=== PATIENT | female | born 1985 | race Two or more races ===

== ENCOUNTER 2025-01-20 23:19 | Emergency (ER) | payer OTHER ==
[~2025-01-20] VITALS: Ht 165.1 cm; Wt 91.0 kg
[2025-01-20] MEDS ORDERED: QUET150T2 PO (23:46)
[2025-01-20] MEDS ORDERED: TRAZ1TAB12 PO (23:46)
[2025-01-20] MEDS ORDERED: ALBU108A5 IN (23:46)
[2025-01-20] MEDS ORDERED: DIPH25CA66 PO (23:46)
--- NOTE | 2025-01-21 00:16 | ED.PDOC ---
History of Present Illness HPI Comments 39 y/o obese F is BIBA for c/o shortness of breath and mental health. Per EMS report, patient has a history of asthma, bipolar disorder, schizophrenia, and nicotine vape use. She called, initially, for difficulty breathing. On scene, patient than began endorsing on hearing voices in her head and inquiring for a psychiatric evaluation. She also reported on not taking any psychiatric medications and running out of her albuterol. Vitals were stable and within normal limits. She denies having any homicidal or suicidal ideations, chest pain, cough, congestion, fever, or further associated symptoms. Chief Complaint: Shortness of Breath Time Seen by MD: 23:30 Reviewed Notes: Nurses Notes, Toll Gate Keeper Notes, Medications, Allergies Allergies: Coded Allergies: NO KNOWN ALLERGIES (Unverified , 01/20/25) Home Meds Active Scripts Trazodone Hcl (Trazodone Hcl) 150 Mg Tab, 1 TAB PO QPM for 90 Days, #90 TAB 2 Refills Prov:WAGNER HARRIS MD 01/20/25 Diphenhydramine Hcl (Benadryl Allergy) 25 Mg Cap, 1 CAP PO QPM for 90 Days, #90 CAP 1 Refill Prov:WAGNER HARRIS MD 01/20/25 Quetiapine Fumerate (Seroquel Xr) 150 Mg Tab, 1 TAB PO QPM for 90 Days, #90 TAB 2 Refills Prov:WAGNER HARRIS MD 01/20/25 Albuterol Sulfate (Albuterol Sulfate Hfa) 108 Mcg/Act Aer, 108 MCG IN Q6HP PRN, #1 AER 3 Refills Prov:WAGNER HARRIS MD 01/20/25 Information Source: Patient, Emergency Med Personnel Mode of Arrival: EMS Severity: Moderate Timing: Hours Duration: Since onset Prehospital treatment: 12 Lead EKG, Coffee Break Attendant Past Medical History PAST MEDICAL HISTORY: Asthma, Schizophrenia Past Medical History (Other): bipolar disorder Surgical History: Denies all surgeries SAW MAN History: Denies all SAW MAN Hx Family History Family History: Unknown Social History Smoker: Non-Smoker Alcohol: Denies ETOH Use Drugs: Denies Drug Use Lives In: Home All Other Systems: Reviewed and Negative (Comprehensive systems review obtained and negative except for what is stated in the HPI.) Physical Exam General Appearance: No Apparent Distress, Normal HEENT: Normal ENT Inspection, Pharynx Normal, TMs Normal Neck: Full Range of Motion, Non-Tender, Normal, Normal Inspection Respiratory: Chest Non-Tender, Lungs Clear, No Accessory Muscle Use, No Respiratory Distress, Normal Breath Sounds Cardiovascular: No Edema, No JVD, No Murmur, No Gallop, Normal Peripheral Pulses, Regular Rate/Rhythm Breast Exam: Deferred Gastrointestinal: No Organomegaly, Non Tender, No Pulsatile Mass, Normal Bowel Sounds, Soft Genitalia: Deferred Pelvic: Deferred Rectal: Deferred Extremities: No calf tenderness, Normal capillary refill, Normal inspection, Normal range of motion, Non-tender, No pedal edema Musculoskeletal : Apperance: Normal Neurologic: Alert, remote ruby on rails developer II-XII nml as Tested, No Motor Deficits, Normal Affect, Normal Mood, No Sensory Deficits Cerebellar Function: Normal Reflexes: Normal Skin: Dry, Normal Color, Warm Lymphatic: No Adenopathy Was a procedure done? Was a procedure done?: No EKG EKG : Pulse Rate (adult): 71 Skipwith: Normal Cardiac Rhythm: NSR Block: None Hypertrophy: None ST: Normal Differential Dx Considerations may include: asthma exacerbation, noncompliance, schizoaffective disorder, among others X-Ray, Labs, Meds, VS Vital Signs Date Time Temp Pulse Resp B/P (MAP) Pulse Ox O2 Delivery O2 Flow Rate FiO2 01/21/25 00:40 98.8 73 12 104/61 (75) 97 98.8 01/21/25 00:40 Room Air* 0 21 01/21/25 00:16 71 01/20/25 23:29 98.4 73 16 106/64 (78) 98 98.4 01/20/25 23:26 71 Time of 1ST Reevaluation: 00:00 Reevaluation 1ST: Unchanged Patient Education/Counseling: Diagnosis, Treatment, Need For Follow Up Family Education/Counseling: No Family Present Departure 1 Departure Time of Disposition: 00:40 Impression: Primary Impression: Schizophrenia Additional Impression: Asthma Disposition: HOME / SELF CARE / HOMELESS Condition: Stable Additional Instructions: Follow up with your Primary Physician Return to the Emergency Department for any worsening symptoms or concerns e-Prescriptions Trazodone Hcl (Trazodone Hcl) 150 Mg Tab 1 TAB PO QPM for 90 Days, #90 TAB 2 Refills Prov: WAGNER HARRIS MD 01/20/25 Diphenhydramine Hcl (Benadryl Allergy) 25 Mg Cap 1 CAP PO QPM for 90 Days, #90 CAP 1 Refill Prov: WAGNER HARRIS MD 01/20/25 Quetiapine Fumerate (Seroquel Xr) 150 Mg Tab 1 TAB PO QPM for 90 Days, #90 TAB 2 Refills Prov: WAGNER HARRIS MD 01/20/25 Albuterol Sulfate (Albuterol Sulfate Hfa) 108 Mcg/Act Aer 108 MCG IN Q6HP PRN, #1 AER 3 Refills Prov: WAGNER HARRIS MD 01/20/25 Discharged With: Self Critical Care Note Critical Care Time?: No Stability Stability form required: No Heart Score Heart Score: Heart Score Response (Comments) Value History N/A 0 EKG N/A 0 Age N/A 0 Risk Factors N/A 0 Troponin N/A 0 Total 0 I personally scribed for WAGNER HARRIS MD ([email or web address]) on 01/21/25 at 00:16. Electronically submitted by Brian Diaz [email or web address]). WAGNER HARRIS MD Jan 21, 2025 00:16
[2025-01-21 00:40] VITALS: BP 104/61; PULSE 73; RESP 12; TEMP 98.8; O2SAT 97
--- NOTE | 2025-01-21 04:22 | ECG ---
[facility] Test Date: 2025-01-20 Test Time: 23:26:11 Pat Name: MARCE HEART Department: ED Room: Gender: F Care Trainer: JAZZ : 1985 Requested By: WAGNER HARRIS Order Number: [id number] Reading MD: Oni Yanez Measurements Intervals [place] Rate: 71 P: 39 DC: 154 QRS: 21 QRSD: 100 T: 7 QT: 389 QTc: 423 Interpretive Statements Sinus rhythm Low voltage, precordial leads RSR' in V1 or V2, right VCD or RVH Electronically Signed On 01-21-2025 14:59:50 PDT by Oni Yanez Please click the below link to view image of tracing.
== END 2025-01-21 00:45 | disposition home or self-care (01) ==
LOC: EDBD 23:19 → ER 23:19
DX: F20.9 Schizophrenia, unspecified (principal); J45.909 Unspecified asthma, uncomplicated; F31.9 Bipolar disorder, unspecified; E66.9 Obesity, unspecified; Z79.899 Other long term (current) drug therapy; Z68.33 Body mass index [BMI] 33.0-33.9, adult
CPT/HCPCS: 93005